=== PATIENT | female | born 1945 | race Two or more races ===

== ENCOUNTER 2017-09-30 11:00 | Outpatient (CLI) | payer OTHER ==
[~2017-09-30 11:00] MED LIST: PEPCID40 MG PO; PROTONIX40 M1; ZOFRAN4 MG PO
== END 2017-09-30 11:04 | disposition home or self-care (01) ==
LOC: MAMO-SONO 11:00
DX: Z12.31 Encounter for screening mammogram for malignant neoplasm of breast (principal); Z87.898 Personal history of other specified conditions; N62 Hypertrophy of breast; M54.2 Cervicalgia

== ENCOUNTER 2017-10-13 08:18 | Outpatient (CLI) | payer OTHER | END 2017-10-13 08:24 | disposition home or self-care (01) | LOC: MRI 08:18 | DX: M48.04 Spinal stenosis, thoracic region (principal) | CPT/HCPCS: 72146 ==

== ENCOUNTER 2017-10-20 09:06 | Outpatient (CLI) | payer OTHER | END 2017-10-20 09:52 | disposition home or self-care (01) | LOC: TOM 09:06 | DX: I65.23 Occlusion and stenosis of bilateral carotid arteries (principal) | CPT/HCPCS: 70491; Q9965 ==

== ENCOUNTER 2018-06-14 11:01 | Outpatient (CLI) | payer OTHER | END 2018-06-14 11:11 | disposition home or self-care (01) | LOC: NUCLEAR 11:01 | DX: M81.0 Age-related osteoporosis without current pathological fracture (principal); M85.80 Other specified disorders of bone density and structure, unspecified site ==

== ENCOUNTER → 2018-06-14 | Outpatient (CLI) | payer OTHER | END | disposition home or self-care (01) | LOC: MAMO-SONO 09:40 → NUCLEAR 10:00 | DX: Z12.31 Encounter for screening mammogram for malignant neoplasm of breast (principal); Z87.898 Personal history of other specified conditions; N60.11 Diffuse cystic mastopathy of right breast; N60.12 Diffuse cystic mastopathy of left breast ==

== ENCOUNTER 2019-11-28 09:01 | Outpatient (CLI) | payer OTHER | END 2019-11-28 09:10 | disposition home or self-care (01) | LOC: MAMO-SONO 09:01 | PROVIDERS: ATTEND Obstetrics & Gynecology | DX: Z12.31 Encounter for screening mammogram for malignant neoplasm of breast (principal); N60.11 Diffuse cystic mastopathy of right breast; N60.12 Diffuse cystic mastopathy of left breast ==